=== PATIENT | female | born 1995 | race Caucasian/White ===

== ENCOUNTER → 2024-05-19 | Outpatient (CLI) | payer MEDICAID ==
[2024-05-19 10:10] LABS: BASO # 0.04 K/mm3 (0.02-0.10); EOS # 0.21 K/mm3 (0.04-0.40); EOS % 2.1 % (1.0-5.0); HEMATOCRIT 40.3 % (37.0-47.0); HEMOGLOBIN 13.5 g/dL (12.5-16.0); LYMPH# 2.21 K/mm3 (1.50-4.00); MEAN CELL VOLUME 88 fl (78-100); MEAN CORPUSCULAR HEMOGLOBIN 29 pg (27-31); MEAN CORPUSCULAR HGB CONC 34 g/dL (33-37); MONO # 0.54 K/mm3 (0.20-0.80); NEU # 7.02 K/mm3 (1.40-6.50); PLATELET COUNT 352 K/mm3 (130-400); RED CELL DISTRIBUTION WIDTH 12.5 % (11.5-14.5)
[2024-05-19 10:16] LABS: ALBUMIN 4.7 g/dL (3.5-5.0)
[2024-05-19 10:17] LABS: CALCIUM 9.6 mg/dL (8.3-10.5)
[2024-05-19 10:18] LABS: TOTAL PROTEIN 7.4 g/dL (6.4-8.3)
[2024-05-19 10:20] LABS: TOTAL BILIRUBIN 0.4 mg/dL (0.2-1.2)
== END ==
LOC: LAB 09:52
PROVIDERS: Physician Assistant
DX: E78.5 Hyperlipidemia, unspecified (principal); R00.2 Palpitations

== ENCOUNTER → 2024-06-27 | Outpatient (CLI) | payer MEDICAID | LOC: RAD 13:10 | DX: R55 Syncope and collapse (principal) ==

== ENCOUNTER → 2024-07-25 | Outpatient (CLI) | payer MEDICAID ==
[2024-07-25 13:10] LABS: CLUE CELLS NOT OBSERVED (Not Observd)
== END ==
LOC: LAB 12:42
PROVIDERS: Nurse Practitioner Family
DX: N89.8 Other specified noninflammatory disorders of vagina (principal)
CPT/HCPCS: Q0111

== ENCOUNTER → 2024-07-25 | Outpatient (CLI) | payer MEDICAID | LOC: AMSURD 13:09 | DX: R00.2 Palpitations (principal) ==